=== PATIENT | male | born 1960 | race Caucasian/White ===

== ENCOUNTER 2018-11-04 07:43 | Day surgery (SDC) | payer BC ==
[~2018-11-04 07:43] MED LIST: Midazolam 1 MG/ML 2 ML SDV ONE; Propofol 200 MG/20 ML SDV ONE; fentaNYL 100 MCG/2 ML SDV ONE
[2018-11-04] MEDS ORDERED: Lactated Ringers 1,000 ML IV SCH (08:30)
--- NOTE | 2018-11-05 09:40 | OR ---
DATE OF PROCEDURE: 11/04/2018 PREOPERATIVE DIAGNOSIS: Colon cancer screening. POSTOPERATIVE DIAGNOSIS: Small colon polyps. PROCEDURE: Colonoscopy to the cecum with biopsy resection of two small colon polyps 20 cm from the anal verge sent as one specimen and biopsy resection of a small rectal polyp. ANESTHESIA: IV anesthesia with monitored anesthesia care. SURGEON: Dillon Ramirez MD INDICATION: This 58-year-old white male is referred for a colonoscopy for colon cancer screening. He has never had a colonoscopic exam. I counseled him for the procedure including risks and alternatives, and he gave his informed consent to proceed. DESCRIPTION OF PROCEDURE: The patient was placed in the left lateral decubitus position. IV anesthesia was administered by the Anesthesia Service. Time-out was held. A rectal exam was performed, which was unremarkable. The flexible video Olympus colonoscope was introduced through his anus, up his rectum, and out his colon all the way to the cecum. Once the cecum was reached, the scope was slowly withdrawn examining the mucosa throughout. No mucosal abnormalities were noted until we reached 20 cm from anal verge. Here, we saw two small polyps which were adjacent to each other. These were removed with the biopsy forceps and sent to the laboratory as one specimen. The scope was brought back into the rectum, where another small polyp was seen. This was removed and sent to the laboratory separate from the other two. The scope was retroflexed in the rectum with the distal rectum appearing unremarkable. The scope was straightened and removed. He tolerated the procedure well. Dillon Ramirez MD /[id number] [email or web address]
== END 2018-11-04 12:57 | disposition home or self-care (01) ==
LOC: JP.SDS 07:43
PROVIDERS: ATTEND Surgery
DX: Z12.11 Encounter for screening for malignant neoplasm of colon (principal); K63.5 Polyp of colon; K62.1 Rectal polyp; F17.200 Nicotine dependence, unspecified, uncomplicated; R73.03 Prediabetes; M06.9 Rheumatoid arthritis, unspecified
CPT/HCPCS: 45380; 88305; J2250; J2704; J3010; J7120

== ENCOUNTER 2020-10-22 23:19 | Emergency (ER) | payer SELFPAY ==
[2020-10-22] MEDS ORDERED: Ketorolac 30 MG/ML SDV IM ONE (23:50)
[2020-10-22] MEDS ORDERED: Methocarbamol 500 MG Tab PO ONE (23:50)
--- NOTE | 2020-10-22 23:57 | EDM.PDOC ---
ED HPI GENERAL MEDICAL PROBLEM - General Chief Complaint: General Stated Complaint: WEAKNESS, COLLAPSE Time Seen by Provider: 10/22/20 23:35 Source of Information: Reports: Patient History Limitations: Reports: No Limitations - History of Present Illness INITIAL COMMENTS - FREE TEXT/NARRATIVE: Alberto is a 60-year-old male presenting to the ED with acute onset of low back pain. The patient reports the pain started 2 days ago. He has a history significant for rheumatoid arthritis for which she is taking leflunomide. He has been instructed not to take any [id number] NSAIDs because of gastric upset and renal disease. Patient was recently seen by his coat joiner on 09/23/2020. He had been doing well until 2 days ago when he was working on his car and Van. He spent a considerable amount of time bent over cleaning these. He denies any trauma. He has had no loss of bowel or bladder control. He denies any weakness in the lower extremities. He denies any saddle anesthesia. He states in the last 2 days he has had several episodes where he has had to catch himself from falling due to the acute exacerbation of pain. He states that when the pain kicks in he does not feel that he can move. In addition to the leflunomide, the patient also takes folic acid and lisinopril. Lower Back Pain Score (Numeric/FACES): 10 - Related Data Allergies Allergy/AdvReac Type Severity Reaction Status Date / Time No Known Allergies Allergy Verified 10/22/20 23:33 Home Meds: Home Meds Folic Acid 1 mg PO DAILY 10/31/18 [History] Leflunomide [Arava] 20 mg PO DAILY 10/31/18 [History] lisinopriL [Lisinopril] 20 mg PO DAILY 10/22/20 [History] methocarbamoL [Methocarbamol] 750 mg PO QID PRN #28 tablet 10/23/20 [Rx] Past Medical History HEENT History: Reports: Impaired Vision, Other (See Below) Other HEENT History: tinnitis Cardiovascular History: Reports: Hypertension Respiratory History: Reports: None Gastrointestinal History: Reports: Colon Polyp Musculoskeletal History: Reports: RA Endocrine/Metabolic History: Reports: Diabetes, Type II Immunologic History: Reports: Other (See Below) Other Immunologic History: rhumatoid arthritis - Infectious Disease History Infectious Disease History: Reports: Chicken Pox - Past Surgical History HEENT Surgical History: Reports: None Cardiovascular Surgical History: Reports: None GI Surgical History: Reports: Colonoscopy, Polypectomy Dermatological Surgical History: Reports: None Social & Family History - Tobacco Use Tobacco Use Status *Q: Current Every Day Tobacco User Years of Tobacco use: 30 Packs/Tins Daily: 1.5 - Caffeine Use Caffeine Use: Reports: Coffee, Soda - Alcohol Use Number of Drinks Per Day: 3 - Recreational Drug Use Recreational Drug Use: No ED ROS GENERAL - Review of Systems Review Of Systems: See Below Constitutional: Reports: No Symptoms HEENT: Reports: No Symptoms Respiratory: Reports: No Symptoms Cardiovascular: Reports: No Symptoms Endocrine: Reports: No Symptoms GI/Abdominal: Reports: No Symptoms : Reports: No Symptoms Musculoskeletal: Reports: Back Pain (Acute onset of low back pain causing the patient to elapse.) Skin: Reports: No Symptoms Neurological: Reports: No Symptoms Psychiatric: Reports: No Symptoms Hematologic/Lymphatic: Reports: No Symptoms Immunologic: Reports: Other (History of rheumatoid arthritis on immunosuppressive therapy.) ED EXAM, GENERAL - Physical Exam Exam: See Below Exam Limited By: No Limitations General Appearance: Alert, Anxious, Mild Distress Head: Atraumatic, Normocephalic Neck: Normal Inspection, Supple Respiratory/Chest: No Respiratory Distress, Lungs Clear, Normal Breath Sounds Cardiovascular: Normal Peripheral Pulses, Regular Rate, Rhythm, No Murmur Peripheral Pulses: 2+: Radial (L), Radial (R) GI/Abdominal: Normal Bowel Sounds, Soft, Non-Tender Back Exam: Decreased Range of Motion (Difficulty with flexion of the lumbar), Muscle Spasm (Significant right paraspinal muscle spasm), Paraspinal Tenderness (Severe right paraspinal tenderness). No: Vertebral Tenderness Extremities: Normal Inspection, Normal Range of Motion Neurological: Alert, Oriented, Normal Cognition, No Motor/Sensory Deficits Psychiatric: Normal Affect, Normal Mood Skin Exam: Warm, Dry, Intact, Normal Color, No Rash Lymphatic: No Adenopathy Course - Vital Signs Last Recorded V/S: Last Vital Signs Temp 36.8 C 10/22/20 23:35 Pulse 71 10/23/20 01:02 Resp 19 10/23/20 01:02 BP 192/121 H 10/23/20 01:02 Pulse Ox 96 10/23/20 01:02 - Orders/Labs/Meds Orders: Active Orders 24 hr Category Date Time Status Lumbar Spine 2 or 3V [CR] Stat Exams 10/22/20 23:50 Taken methocarbamoL [Robaxin] Med 10/23/20 01:29 Once 1,000 mg PO ONETIME ONE Labs: Laboratory Tests 10/22/20 10/22/20 Range/Units 00:01 00:01 WBC 15.7 H (4.5-11.0) K/uL RBC 4.36 (4.30-5.90) M/uL Hgb 13.9 (12.0-15.0) g/dL Hct 41.3 (40.0-54.0) % MCV 95 (80-98) fL MCH 32 H (27-31) pg MCHC 34 (32-36) % Plt Count 298 (150-400) K/uL ESR 29 H (0-20) mm/hr Sodium 141 (140-148) mmol/L Potassium 4.4 (3.6-5.2) mmol/L Chloride 104 (100-108) mmol/L Carbon Dioxide 26 (21-32) mmol/L Anion Gap 11.3 (5.0-14.0) mmol/L BUN 18 (7-18) mg/dL Creatinine 1.4 H (0.8-1.3) mg/dL Est Cr Clr Drug Dosing 61.26 mL/min Estimated GFR (MDRD) 52 L (>60) Glucose 116 H (74-106) mg/dL Calcium 8.7 (8.5-10.1) mg/dL C-Reactive Protein 1.40 H (0.0-0.3) mg/dL Meds: Medications Discontinued Medications Generic Name Dose Route Start Last Admin Trade Name Freq PRN Reason Stop Dose Admin Ketorolac Tromethamine 30 mg 10/22/20 23:50 10/22/20 23:59 Ketorolac 30 Mg/Ml Sdv IM 10/22/20 23:51 30 mg ONETIME ONE Administration Lidocaine 700 mg 10/23/20 00:55 10/23/20 00:59 Lidocaine 5% 700 Mg Patch TOP 10/23/20 00:56 700 mg ONETIME ONE Administration Methocarbamol 1,000 mg 10/22/20 23:50 10/22/20 23:59 Methocarbamol 500 Mg Tab PO 10/22/20 23:51 1,000 mg ONETIME ONE Administration - Radiology Interpretation Free Text/Narrative:: I reviewed the three-view x-ray of the lumbar spine. There is significant straightening of the lumbar spine secondary to muscle spasm. There is normal disc height. Vertebral bodies appear to be normal without evidence for acute compression fracture. No significant spondylolisthesis. Surprisingly, no significant arthritis despite the patient having relatively active rheumatoid arthritis. - Re-Assessments/Exams Free Text/Narrative Re-Assessment/Exam: 10/22/20 23:56 Alberto is having significant right paraspinal lumbar spasm and pain. There is no midline tenderness to palpation or percussion. We will get a lumbar x-ray, however, I do not anticipate that we will see an acute fracture. Moreover, this appears to be an acute myofascial lumbar strain affecting the right side greater than the left. We will attempt to treat this with a shot of Toradol 30 mg IM and methocarbamol 1 g p.o. I will check the patient's labs for a CBC, basic metabolic profile to look at his creatinine, a C-reactive protein and erythrocyte sedimentation rate to look at inflammatory markers. 10/23/20 00:24 I reviewed the 3 view x-rays of the lumbar spine shows straightening of the spine without evidence of an osseous abnormality. Disc heights are preserved. No compression fractures. No significant arthritic changes noted. 10/23/20 00:25 my plan is to treat the patient's muscle spasm with methocarbamol 750 mg 4 times a day as needed for spasm. He will have to take Tylenol for p ain control as he is intolerant to NSAIDs due to his kidney function and recurrent gastritis. I do not think that opiates are appropriate in this situation. Moreover, the methocarbamol will probably provide adequate pain relief as majority of the pain is coming from muscle spasm. Patient is instructed to ice the area 15 to 20 minutes every couple hours he is awake over the next several days after which time he can alternate heat and ice. No prolonged bending or standing. No lifting greater than 20 pounds. A work note with these limitations was given to the patient. These limitations are in effect for 7 days. Departure - Departure Time of Disposition: 01:30 Disposition: Home, Self-Care 01 Clinical Impression: Acute lumbar myofascial strain Qualifiers: Encounter type: initial encounter Qualified Code(s): S39.012A - Strain of muscle, fascia and tendon of lower back, initial encounter - Discharge Information Prescriptions: methocarbamoL [Methocarbamol] 750 mg PO QID PRN #28 tablet PRN Reason: Muscle Spasm - Painful Instructions: Lumbosacral Strain Referrals: Tj Cowan, LEATHER BELT [facility]KER [Primary Care Provider] - Forms: ED Department Discharge Care Plan Goals: I am prescribing you methocarbamol 750 mg 4 times a day as needed for muscle spasm and pain. Please take Tylenol in addition for pain as needed. I would like you to ice the back 15 to 20 minutes every couple hours you are awake for the next 24 hours after which you can alternate with heat and ice. I am putting you on work restrictions for the next 7 days. A note has been included with these restrictions until 10/31/2020. Please return to the ED for reevaluation should you develop any difficulty with urination or defecation, new onset of numbness or tingling. I would also recommend picking up Salonpas 4% lidocaine patches and applying it to the back for pain control. Sepsis Event Note (ED) - Evaluation Sepsis Screening Result: No Definite Risk - Focused Exam Vital Signs: Vital Signs Temp Pulse Resp BP Pulse Ox 10/23/20 01:02 71 19 192/121 H 96 10/23/20 00:17 151/102 H 10/22/20 23:35 36.8 C 73 19 172/102 H 98 10/22/20 23:34 36.8 C 73 19 172/102 H 98 - Problem List & Annotations (1) Acute lumbar myofascial strain SNOMED Code(s): 718347309, 02951162, 025742382 Code(s): S39.012A - STRAIN OF MUSCLE, FASCIA AND TENDON OF LOWER BACK, INIT Status: Acute Priority: Medium Current Visit: Yes Qualifiers: Encounter type: initial encounter Qualified Code(s): S39.012A - Strain of muscle, fascia and tendon of lower back, initial encounter - Problem List Review Problem List Initiated/Reviewed/Updated: Yes - My Orders Last 24 Hours: My Active Orders 10/22/20 23:50 Lumbar Spine 2 or 3V [CR] Stat 10/23/20 01:29 methocarbamoL [Robaxin] 1,000 mg PO ONETIME ONE - Assessment/Plan Last 24 Hours: My Active Orders 10/22/20 23:50 Lumbar Spine 2 or 3V [CR] Stat 10/23/20 01:29 methocarbamoL [Robaxin] 1,000 mg PO ONETIME ONE
[2020-10-23] MEDS ORDERED: Lidocaine 5% 700 MG Patch TOP ONE (00:55)
[2020-10-23] MEDS ORDERED: Methocarbamol 500 MG Tab PO ONE (01:29)
--- NOTE | 2020-10-25 09:39 | CR ---
Lumbar Spine 2 or 3V CLINICAL HISTORY: Back pain FINDINGS: The vertebral body heights are maintained. There is moderate disc space narrowing at L5-S1. There is a minimal retrolisthesis of L5 on S1. There is some osteophytic change in the facets. IMPRESSION: Degenerative disc changes and osteoarthritis at L5-S1 No fracture seen
== END 2020-10-23 01:54 | disposition home or self-care (01) ==
LOC: JP.ED 23:19
DX: S39.012A Strain of muscle, fascia and tendon of lower back, initial encounter (principal); I10 Essential (primary) hypertension; E11.9 Type 2 diabetes mellitus without complications; Z79.899 Other long term (current) drug therapy; Z72.0 Tobacco use; X50.9XXA Other and unspecified overexertion or strenuous movements or postures, initial encounter; Y92.009 Unspecified place in unspecified non-institutional (private) residence as the place of occurrence of the external cause
CPT/HCPCS: 36415; 72100; 80048; 85027; 85651; 86140; 96372; 99283; A9270; J1885

== ENCOUNTER 2021-08-26 19:03 | Emergency (ER) | payer OTHER ==
[2021-08-26] MEDS ORDERED: HYDROmorphone 1 MG/ML Syringe IM ONE ×2 (19:30→21:49)
[2021-08-26] MEDS ORDERED: predniSONE 20 MG Tab PO ONE (21:10)
[2021-08-26] MEDS ORDERED: Sodium Chloride 0.9% 10 ML Syringe FLUSH PRN (22:20)
[2021-08-26] MEDS ORDERED: Dexamethasone 4 MG/ML SDV IVPUSH ONE (22:20)
[2021-08-26] MEDS ORDERED: Morphine 10 MG/ML Syringe IVPUSH STA (23:58)
== END 2021-08-27 06:43 | disposition home or self-care (01) ==
LOC: JP.ED 19:03
DX: M06.9 Rheumatoid arthritis, unspecified (principal); I10 Essential (primary) hypertension; E11.9 Type 2 diabetes mellitus without complications; F17.210 Nicotine dependence, cigarettes, uncomplicated; Z79.899 Other long term (current) drug therapy
CPT/HCPCS: 36415; 80053; 85025; 85651; 86140; 86431; 96372; 96374; 96375; 99283; 99283-25; J1100; J1170; J2270; J3490; J7512

== ENCOUNTER 2021-12-05 21:22 | Emergency (ER) | payer OTHER ==
[2021-12-05] MEDS ORDERED: Lidocaine 5% 700 MG Patch TRDERM ONE (22:18)
== END 2021-12-05 22:34 | disposition home or self-care (01) ==
LOC: JP.ED 21:22
DX: S39.012A Strain of muscle, fascia and tendon of lower back, initial encounter (principal); I10 Essential (primary) hypertension; E11.9 Type 2 diabetes mellitus without complications; F17.210 Nicotine dependence, cigarettes, uncomplicated; Z79.899 Other long term (current) drug therapy
CPT/HCPCS: 99283; A9270

== ENCOUNTER 2022-03-14 20:38 | Emergency (ER) | payer OTHER | END 2022-03-14 21:58 | disposition home or self-care (01) | LOC: JP.ED 20:38 | DX: M06.9 Rheumatoid arthritis, unspecified (principal); I10 Essential (primary) hypertension; E11.9 Type 2 diabetes mellitus without complications; F17.210 Nicotine dependence, cigarettes, uncomplicated; Z79.899 Other long term (current) drug therapy | CPT/HCPCS: 99283 ==

== ENCOUNTER 2022-07-12 20:47 | Emergency (ER) | payer OTHER ==
[2022-07-12] MEDS ORDERED: Sodium Chloride 0.9% 10 ML Syringe FLUSH PRN (20:56)
[2022-07-12] MEDS ORDERED: Dexamethasone 4 MG/ML SDV IVPUSH ONE (20:56)
[2022-07-12] MEDS ORDERED: HYDROmorphone 1 MG/ML Syringe IVPUSH ONE (20:56)
== END 2022-07-12 22:26 | disposition home or self-care (01) ==
LOC: JP.ED 20:47
DX: M06.9 Rheumatoid arthritis, unspecified (principal); I10 Essential (primary) hypertension; E11.9 Type 2 diabetes mellitus without complications; Z79.899 Other long term (current) drug therapy
CPT/HCPCS: 36415; 85025; 86140; 96374; 96375; 99283; J1100; J1170; J3490

== ENCOUNTER 2022-07-12 23:05 | Emergency (ER) | payer OTHER ==
[2022-07-12] MEDS ORDERED: Heparin Sodium 5,000 Units/ML Vial IVPUSH ONE (23:19)
[2022-07-12] MEDS ORDERED: Aspirin 81 MG Tab.Chew PO ONE (23:19)
[2022-07-12] MEDS ORDERED: Metoprolol Tartrate 25 MG Tab PO STA (23:27)
[2022-07-12] MEDS ORDERED: Heparin Sodium/D5W 500 ML ONE (23:27)
[2022-07-12] MEDS ORDERED: Metoprolol Tartrate 25 MG Tab ONE (23:28)
[2022-07-12] MEDS ORDERED: Heparin Sodium/D5W 25,000 UNITS/500 ML BAG IV SCH (23:30)
[2022-07-12 23:43] LABS: ESTIMATED GFR 69 mL/min (>60)
[2022-07-12 23:44] LABS: TROPONIN I HIGH SENSITIVITY 1511.5 pg/mL (<=60.3)
== END 2022-07-13 00:31 ==
LOC: JP.ED 23:05
DX: I21.11 ST elevation (STEMI) myocardial infarction involving right coronary artery (principal); I10 Essential (primary) hypertension; E11.9 Type 2 diabetes mellitus without complications; M06.9 Rheumatoid arthritis, unspecified; Z79.899 Other long term (current) drug therapy
CPT/HCPCS: 36415; 80053; 84484; 85610; 85730; 87635; 93005; 93010; 96365; 96376; 99285; 99291; A9270; J1644; U0002

== ENCOUNTER 2022-08-29 16:42 | Emergency (ER) | payer OTHER ==
[2022-08-29] MEDS ORDERED: Bupivacaine 0.5%/EPINEPHrine 1:200,000 1.8 ML Cartridge INJECT ONE (17:11)
[2022-08-29] MEDS ORDERED: Tranexamic Acid 1,000 MG/10 ML Vial TOP ONE (17:11)
[2022-08-29 17:22] LABS: BASOPHILS ABSOLUTE AUTO 0.12 K/uL (0.00-0.10); BASOPHILS PERCENT AUTO 0.6 % (0.1-1.3); EOSINOPHILS ABSOLUTE AUTO 0.06 K/uL (0.00-0.40); EOSINOPHILS PERCENT AUTO 0.3 % (0.0-5.4); HEMATOCRIT 32.6 % (38.4-49.7); HEMOGLOBIN 10.9 g/dL (12.9-16.9); IMMATURE GRAN ABSOLUTE AUTO 0.15 K/uL (0.00-0.23); IMMATURE GRAN PERCENT AUTO 0.7 % (0.0-0.7); LYMPHOCYTES ABSOLUTE AUTO 1.17 K/uL (0.8-3.3); LYMPHOCYTES PERCENT AUTO 5.8 % (11.4-47.7); MEAN CORPUSCULAR HEMOGLOBIN 32.2 pg (31.6-35.5); MEAN CORPUSCULAR HGB CONC 33.4 g/dL (31.6-35.5); MEAN CORPUSCULAR VOLUME 96.2 fL (81.4-99.0); MONOCYTES ABSOLUTE AUTO 1.72 K/uL (0.20-0.90); MONOCYTES PERCENT AUTO 8.5 % (3.3-12.6); NEUTROPHILS ABSOLUTE AUTO 16.93 K/uL (1.0-7.6); NEUTROPHILS PERCENT AUTO 84.1 % (40.0-78.1); PLATELET COUNT,PLT 275 K/uL (130-375); RED BLOOD CELL COUNT 3.39 M/uL (4.14-5.76); WHITE BLOOD CELL COUNT,WBC 20.2 K/uL (3.2-11.0)
== END 2022-08-29 20:34 | disposition home or self-care (01) ==
LOC: JP.ED 16:42
DX: K91.840 Postprocedural hemorrhage of a digestive system organ or structure following a digestive system procedure (principal); E11.9 Type 2 diabetes mellitus without complications; I10 Essential (primary) hypertension; F17.210 Nicotine dependence, cigarettes, uncomplicated
CPT/HCPCS: 36415; 84484; 85025; 99284; J3490

== ENCOUNTER 2023-03-25 19:26 | Emergency (ER) | payer OTHER ==
[2023-03-25] MEDS ORDERED: Acetaminophen 325 MG Tab PO ONE (20:08)
[2023-03-25] MEDS ORDERED: Albuterol/Ipratropium 3.0-0.5 MG/3 ML Neb Soln NEB ONE (20:25)
[2023-03-25 20:37] LABS: BASOPHILS ABSOLUTE AUTO 0.05 K/uL (0.00-0.10); BASOPHILS PERCENT AUTO 0.4 % (0.1-1.3); EOSINOPHILS ABSOLUTE AUTO 0.05 K/uL (0.00-0.40); EOSINOPHILS PERCENT AUTO 0.4 % (0.0-5.4); HEMATOCRIT 36.1 % (38.4-49.7); HEMOGLOBIN 12.1 g/dL (12.9-16.9); IMMATURE GRAN ABSOLUTE AUTO 0.04 K/uL (0.00-0.23); IMMATURE GRAN PERCENT AUTO 0.3 % (0.0-0.7); LYMPHOCYTES ABSOLUTE AUTO 0.71 K/uL (0.8-3.3); LYMPHOCYTES PERCENT AUTO 5.5 % (11.4-47.7); MEAN CORPUSCULAR HEMOGLOBIN 31.8 pg (31.6-35.5); MEAN CORPUSCULAR HGB CONC 33.5 g/dL (31.6-35.5); MEAN CORPUSCULAR VOLUME 94.8 fL (81.4-99.0); MONOCYTES ABSOLUTE AUTO 1.21 K/uL (0.20-0.90); MONOCYTES PERCENT AUTO 9.3 % (3.3-12.6); NEUTROPHILS ABSOLUTE AUTO 10.92 K/uL (1.0-7.6); NEUTROPHILS PERCENT AUTO 84.1 % (40.0-78.1); PLATELET COUNT,PLT 194 K/uL (130-375); RED BLOOD CELL COUNT 3.81 M/uL (4.14-5.76)
[2023-03-25 20:44] LABS: CORONAVIRUS COVID-19 NAA NEGATIVE (NEGATIVE); INFLUENZA A NAA NEGATIVE (NEGATIVE); INFLUENZA B NAA NEGATIVE (NEGATIVE); RESPIRATORY SYNCYTIAL VIR NAA NEGATIVE (NEGATIVE)
[2023-03-25 21:00] LABS: A/G RATIO 0.9 (1.2-2.2); ALANINE AMINOTRANSFERASE,ALT 17 U/L (12-78); ALBUMIN 3.3 g/dL (3.4-5.0); ALKALINE PHOSPHATASE 81 U/L (46-116); ASPARTATE AMNIOTRANSFERASE,AST 17 U/L (15-37); BILIRUBIN TOTAL 0.6 mg/dL (0.2-1.0); BLOOD UREA NITROGEN,BUN 19 mg/dL (7-18); C-REACTIVE PROTEIN 6.83 mg/dL (<0.50); CALCIUM 7.9 mg/dL (8.5-10.1); CARBON DIOXIDE,CO2 26 mmol/L (21-32); CHLORIDE,CL 100 mmol/L (100-108); CREATININE 1.6 mg/dL (0.8-1.3); EST CRCL DRUG DOSING (CG) 52.29 mL/min; ESTIMATED GFR 49 mL/min (>60); GLUCOSE RANDOM 128 mg/dL (74-106); POTASSIUM,K 4.1 mmol/L (3.6-5.2); PROTEIN TOTAL,TP 6.9 g/dL (6.4-8.2); SODIUM,NA 135 mmol/L (140-148)
[2023-03-25 21:05] LABS: LACTIC ACID 1.1 mmol/L (0.4-2.0)
[2023-03-25 21:07] LABS: ANION GAP 13.1 mmol/L (5.0-14.0)
== END 2023-03-25 21:47 | disposition home or self-care (01) ==
LOC: JP.ED 19:26
DX: J18.9 Pneumonia, unspecified organism (principal); I10 Essential (primary) hypertension; E11.9 Type 2 diabetes mellitus without complications; F17.210 Nicotine dependence, cigarettes, uncomplicated; Z20.822 Contact with and (suspected) exposure to COVID-19; Z79.82 Long term (current) use of aspirin; Z79.899 Other long term (current) drug therapy
CPT/HCPCS: 0241U; 36415; 71045; 80053; 83605; 84145; 84484; 85025; 85379; 86140; 93005; 94640; 99285; A9270; J7620

== ENCOUNTER 2023-07-12 20:36 | Inpatient (IN) | payer OTHER ==
[2023-07-12 21:11] LABS: BASOPHILS ABSOLUTE AUTO 0.11 K/uL (0.00-0.10); BASOPHILS PERCENT AUTO 0.9 % (0.1-1.3); EOSINOPHILS ABSOLUTE AUTO 0.24 K/uL (0.00-0.40); EOSINOPHILS PERCENT AUTO 1.9 % (0.0-5.4); HEMATOCRIT 45.9 % (38.4-49.7); HEMOGLOBIN 15.4 g/dL (12.9-16.9); IMMATURE GRAN ABSOLUTE AUTO 0.05 K/uL (0.00-0.23); IMMATURE GRAN PERCENT AUTO 0.4 % (0.0-0.7); LYMPHOCYTES PERCENT AUTO 8.6 % (11.4-47.7); MEAN CORPUSCULAR HEMOGLOBIN 31.7 pg (31.6-35.5); MEAN CORPUSCULAR HGB CONC 33.6 g/dL (31.6-35.5); MEAN CORPUSCULAR VOLUME 94.4 fL (81.4-99.0); MONOCYTES ABSOLUTE AUTO 1.69 K/uL (0.20-0.90); MONOCYTES PERCENT AUTO 13.2 % (3.3-12.6); NEUTROPHILS ABSOLUTE AUTO 9.66 K/uL (1.0-7.6); PLATELET COUNT,PLT 262 K/uL (130-375); RED BLOOD CELL COUNT 4.86 M/uL (4.14-5.76); WHITE BLOOD CELL COUNT,WBC 12.9 K/uL (3.2-11.0)
[2023-07-12 21:22] LABS: CALCIUM 9.5 mg/dL (8.5-10.1); CREATININE 2.6 mg/dL (0.8-1.3); EST CRCL DRUG DOSING (CG) 31.78 mL/min; POTASSIUM,K 4.2 mmol/L (3.6-5.2); TROPONIN I HIGH SENSITIVITY 15.9 pg/mL (<=60.3)
[2023-07-12 21:23] LABS: ANION GAP 16.2 mmol/L (5.0-14.0)
[2023-07-12] MEDS: Sodium Chloride 0.9% 1,000 ML IV SCH ×2 (21:30→22:54)
[2023-07-12 22:10] LABS: A/G RATIO 1.2 (1.2-2.2); ALBUMIN 4.3 g/dL (3.4-5.0); BILIRUBIN DIRECT 0.17 mg/dL (0.0-0.2); BILIRUBIN INDIRECT 0.53; BILIRUBIN TOTAL 0.7 mg/dL (0.2-1.0); PROTEIN TOTAL,TP 7.9 g/dL (6.4-8.2)
[2023-07-12] MEDS: Sodium Chloride 0.9% 100 ML IV ONE (23:16)
[2023-07-12] MEDS: Iopamidol 612 MG/ML 100 ML Bottle IV ONE (23:16)
[2023-07-12] MEDS: Sodium Chloride 0.9% 10 ML Syringe FLUSH ONE (23:16)
[2023-07-12] MEDS ORDERED: Naloxone 0.4 MG/ML SDV IVPUSH PRN (23:26)
[2023-07-13] MEDS: Sodium Chloride 0.9% 1,000 ML IV SCH ×2 (00:03→07:56)
[2023-07-13 00:14] LABS: APPEARANCE,URINE CLEAR (CLEAR); BILIRUBIN,URINE NEGATIVE (NEGATIVE); COLOR,URINE YELLOW (YELLOW); GLUCOSE,URINE NEGATIVE (NEGATIVE); KETONES,URINE NEGATIVE (NEGATIVE); LEUKOCYTE ESTERASE,URINE NEGATIVE (NEGATIVE); NITRITE,URINE NEGATIVE (NEGATIVE); OCCULT BLOOD,URINE NEGATIVE (NEGATIVE); PH,URINE 5.5 (5.0-8.0); PROTEIN,URINE NEGATIVE (NEGATIVE); UROBILINOGEN,URINE 0.2 EU/dL (0.2-1.0)
[2023-07-13 00:16] LABS: AMORPHOUS SEDIMENT,URINE FEW; BACTERIA,URINE FEW; EPITHELIAL CELLS,URINE RARE; MUCUS,URINE NOT SEEN; RBC,URINE 0-5 (0-5); WBC,URINE 0-5 (0-5)
[2023-07-13 01:22] LABS: CORONAVIRUS COVID-19 NAA NEGATIVE (NEGATIVE); INFLUENZA A NAA NEGATIVE (NEGATIVE); INFLUENZA B NAA NEGATIVE (NEGATIVE); RESPIRATORY SYNCYTIAL VIR NAA NEGATIVE (NEGATIVE)
[2023-07-13] MEDS ORDERED: Ondansetron 4 MG/2 ML SDV IV PRN (02:24)
[2023-07-13] MEDS ORDERED: Ondansetron 4 MG Tab.DIS PO PRN (02:24)
[2023-07-13] MEDS ORDERED: Melatonin 3 MG Tab PO PRN (02:24)
[2023-07-13] MEDS: Nicotine 21 MG/24 Hr Patch TRDERM PRN (02:49)
[2023-07-13] MEDS: Pantoprazole 40 MG Vial IV SCH ×2 (02:49→20:34)
[2023-07-13] MEDS: HYDROmorphone 0.5 MG/0.5 ML Syringe IVPUSH ONE (03:01)
[2023-07-13 04:33] LABS: HEMATOCRIT 40.8 % (38.4-49.7); HEMOGLOBIN 13.6 g/dL (12.9-16.9); MEAN CORPUSCULAR HEMOGLOBIN 31.6 pg (31.6-35.5); MEAN CORPUSCULAR HGB CONC 33.3 g/dL (31.6-35.5); MEAN CORPUSCULAR VOLUME 94.9 fL (81.4-99.0); RED BLOOD CELL COUNT 4.3 M/uL (4.14-5.76); WHITE BLOOD CELL COUNT,WBC 9.3 K/uL (3.2-11.0)
[2023-07-13 04:43] LABS: CALCIUM 8.2 mg/dL (8.5-10.1); CREATININE 1.9 mg/dL (0.8-1.3); EST CRCL DRUG DOSING (CG) 43.48 mL/min
[2023-07-13] MEDS: NICOTINE PATCH CHECK TOP SCH (09:42)
[2023-07-14] MEDS ORDERED: LEFLUNOMIDE 20 MG PO SCH (05:15)
[2023-07-14] MEDS: Clopidogrel 75 MG Tab PO SCH (05:43)
[2023-07-14] MEDS: predniSONE 5 MG Tab PO ONE (05:43)
[2023-07-14] MEDS: Metoprolol Succinate 25 MG Tab.ER PO SCH (05:44)
[2023-07-14] MEDS: Acetaminophen 325 MG Tab PO PRN (06:21)
[2023-07-14] MEDS: Lisinopril 20 MG Tab PO SCH (08:35)
[2023-07-14] MEDS: atorvaSTATin 20 MG Tab PO SCH (08:35)
[2023-07-14] MEDS: Aspirin 81 MG Tab.EC PO SCH (08:35)
[2023-07-14] MEDS: LEFLUNOMIDE 20 MG PO SCH (10:10)
[2023-07-14] MEDS: Lidocaine 4% 1 each Patch TOP SCH (11:10)
[2023-07-14] MEDS ORDERED: Clopidogrel 75 MG Tab PO SCH (21:00)
[2023-07-14] MEDS ORDERED: Metoprolol Succinate 25 MG Tab.ER PO SCH (21:00)
[2023-07-15] MEDS ORDERED: Metoprolol Succinate 25 MG Tab.ER PO SCH (09:00)
== END 2023-07-14 11:48 | disposition home or self-care (01) | DRG 389 ==
LOC: JP.ED 20:36 → JP.MS 07-13 01:43
PROVIDERS: ADMIT Registered Nurse; ATTEND Internal Medicine
DX: K56.600 Partial intestinal obstruction, unspecified as to cause (principal); N17.9 Acute kidney failure, unspecified; A08.4 Viral intestinal infection, unspecified; I25.10 Atherosclerotic heart disease of native coronary artery without angina pectoris; F17.210 Nicotine dependence, cigarettes, uncomplicated; H54.7 Unspecified visual loss; R62.50 Unspecified lack of expected normal physiological development in childhood; E86.0 Dehydration; E11.22 Type 2 diabetes mellitus with diabetic chronic kidney disease; I12.9 Hypertensive chronic kidney disease with stage 1 through stage 4 chronic kidney disease, or unspecified chronic kidney disease; N18.31 Chronic kidney disease, stage 3a; M54.50 Low back pain, unspecified; M05.79 Rheumatoid arthritis with rheumatoid factor of multiple sites without organ or systems involvement; I25.2 Old myocardial infarction; Z95.5 Presence of coronary angioplasty implant and graft; Z79.899 Other long term (current) drug therapy; Z79.02 Long term (current) use of antithrombotics/antiplatelets; Z79.82 Long term (current) use of aspirin; Z86.010 Personal history of colon polyps; Z98.890 Other specified postprocedural states
CPT/HCPCS: 0241U; 36415; 71275; 74174; 80048; 80076; 81001; 84484; 85025; 85027; 85379; 86140; 87493; 93005; 93010; 96360; 96361; 99223; 99232; 99238; 99285; 99285-25; A9270-GY; C9113; J3490; J7030; J7512; Q9967

== ENCOUNTER 2024-09-16 22:13 | Inpatient (IN) | payer OTHER ==
[2024-09-16] MEDS: Albuterol 0.083% 2.5 MG/3 ML Neb Soln NEB ONE (23:09)
[2024-09-16] MEDS: Albuterol/Ipratropium 3.0-0.5 MG/3 ML Neb Soln NEB ONE (23:09)
[2024-09-16 23:10] LABS: BASOPHILS ABSOLUTE AUTO 0.15 K/uL (0.00-0.10); EOSINOPHILS PERCENT AUTO 3.4 % (0.0-5.4); HEMOGLOBIN 13.1 g/dL (12.9-16.9); IMMATURE GRAN ABSOLUTE AUTO 0.06 K/uL (0.00-0.23); IMMATURE GRAN PERCENT AUTO 0.4 % (0.0-0.7); LYMPHOCYTES ABSOLUTE AUTO 1.49 K/uL (0.8-3.3); LYMPHOCYTES PERCENT AUTO 10.2 % (11.4-47.7); MEAN CORPUSCULAR HEMOGLOBIN 32.5 pg (31.6-35.5); MEAN CORPUSCULAR HGB CONC 33.6 g/dL (31.6-35.5); MEAN CORPUSCULAR VOLUME 96.8 fL (81.4-99.0); MONOCYTES ABSOLUTE AUTO 2.09 K/uL (0.20-0.90); MONOCYTES PERCENT AUTO 14.4 % (3.3-12.6); NEUTROPHILS ABSOLUTE AUTO 10.27 K/uL (1.0-7.6); NEUTROPHILS PERCENT AUTO 70.6 % (40.0-78.1); PLATELET COUNT,PLT 241 K/uL (130-375); RED BLOOD CELL COUNT 4.03 M/uL (4.14-5.76); WHITE BLOOD CELL COUNT,WBC 14.6 K/uL (3.2-11.0)
[2024-09-16] MEDS: methylPREDNISolone Sodium Succinate 125 MG/2 ML SDV IVPUSH ONE (23:12)
[2024-09-16] MEDS: Aspirin 81 MG Tab.Chew PO ONE (23:12)
[2024-09-16 23:29] LABS: A/G RATIO 1.1 (1.2-2.2); ALANINE AMINOTRANSFERASE,ALT 25 U/L (12-78); ALBUMIN 3.6 g/dL (3.4-5.0); ALKALINE PHOSPHATASE 82 U/L (46-116); ASPARTATE AMNIOTRANSFERASE,AST 15 U/L (15-37); BILIRUBIN TOTAL 0.7 mg/dL (0.2-1.0); BLOOD UREA NITROGEN,BUN 23 mg/dL (7-18); CALCIUM 8.9 mg/dL (8.5-10.1); CARBON DIOXIDE,CO2 25 mmol/L (21-32); CHLORIDE,CL 103 mmol/L (100-108); CREATININE 1.5 mg/dL (0.8-1.3); EST CRCL DRUG DOSING (CG) 54.38 mL/min; ESTIMATED GFR 52 mL/min (>60); GLUCOSE RANDOM 109 mg/dL (74-106); POTASSIUM,K 4.1 mmol/L (3.6-5.2); SODIUM,NA 138 mmol/L (140-148); TROPONIN I HIGH SENSITIVITY 19.3 pg/mL (<=60.3)
[2024-09-16 23:38] LABS: ANION GAP 14.1 mmol/L (5.0-14.0)
[2024-09-17] MEDS: Azithromycin 500 MG in Sodium Chloride 0.9% 250 ML IV SCH (01:09)
[2024-09-17] MEDS: cefTRIAXone 1 GM in Sodium Chloride 0.9% 50 ML IV ONE (02:14)
[2024-09-17] MEDS ORDERED: Melatonin 3 MG Tab PO PRN (02:34)
[2024-09-17] MEDS ORDERED: Acetaminophen 325 MG Tab PO PRN (02:34)
[2024-09-17] MEDS ORDERED: Albuterol 0.083% 2.5 MG/3 ML Neb Soln NEB PRN (02:34)
[2024-09-17] MEDS ORDERED: Ondansetron 4 MG/2 ML SDV IV PRN (02:34)
[2024-09-17] MEDS ORDERED: Ondansetron 4 MG Tab.DIS PO PRN (02:34)
[2024-09-17] MEDS ORDERED: Magnesium Hydroxide 400 MG/5 ML Susp 30 ML Cup PO PRN (02:34)
[2024-09-17] MEDS ORDERED: Nicotine 21 MG/24 Hr Patch TRDERM PRN (02:34)
[2024-09-17] MEDS ORDERED: Sennosides/Docusate Sodium 50-8.6 MG Tab PO PRN (02:34)
[2024-09-17] MEDS ORDERED: Cyclobenzaprine 10 MG Tab PO PRN (03:29)
[2024-09-17 05:55] LABS: HEMATOCRIT 38.8 % (38.4-49.7); HEMOGLOBIN 13.1 g/dL (12.9-16.9); MEAN CORPUSCULAR HEMOGLOBIN 32.4 pg (31.6-35.5); MEAN CORPUSCULAR HGB CONC 33.8 g/dL (31.6-35.5); RED BLOOD CELL COUNT 4.04 M/uL (4.14-5.76); WHITE BLOOD CELL COUNT,WBC 11.1 K/uL (3.2-11.0)
[2024-09-17 06:18] LABS: CALCIUM 9.1 mg/dL (8.5-10.1); CREATININE 1.4 mg/dL (0.8-1.3); EST CRCL DRUG DOSING (CG) 58.27 mL/min; POTASSIUM,K 4.2 mmol/L (3.6-5.2)
[2024-09-17 06:40] LABS: ANION GAP 13.2 mmol/L (5.0-14.0)
[2024-09-17] MEDS: Albuterol/Ipratropium 3.0-0.5 MG/3 ML Neb Soln NEB SCH (06:55)
[2024-09-17] MEDS: atorvaSTATin 20 MG Tab PO SCH (08:42)
[2024-09-17] MEDS: Folic Acid 1 MG Tab PO SCH (08:42)
[2024-09-17] MEDS: Aspirin 81 MG Tab.EC PO SCH (08:43)
[2024-09-17] MEDS: Pantoprazole 40 MG Tab.CR PO SCH (08:43)
[2024-09-17] MEDS: Carvedilol 12.5 MG Tab PO SCH (08:43)
[2024-09-17] MEDS: Lactobacillus Rhamnosus GG (Probiotic) Cap PO SCH (08:43)
[2024-09-17] MEDS: NICOTINE PATCH CHECK TOP SCH (08:44)
[2024-09-17] MEDS: Clopidogrel 75 MG Tab PO SCH (08:44)
[2024-09-17] MEDS: Lisinopril 20 MG Tab PO SCH (08:44)
[2024-09-17] MEDS ORDERED: LEFLUNOMIDE 20 MG PO SCH (09:00)
[2024-09-17] MEDS: predniSONE 20 MG Tab PO ONE (10:32)
[2024-09-17] MEDS ORDERED: Azithromycin 250 MG Tab PO SCH (21:00)
[2024-09-17] MEDS ORDERED: atorvaSTATin 20 MG Tab PO SCH (21:00)
[2024-09-17] MEDS ORDERED: cefTRIAXone 1 GM in Sodium Chloride 0.9% 50 ML IV SCH (22:00)
[2024-09-18] MEDS ORDERED: predniSONE 20 MG Tab PO SCH (08:00)
== END 2024-09-17 14:50 | disposition home or self-care (01) | DRG 193 ==
LOC: JP.ED 22:13 → JP.MS 09-17 01:56
PROVIDERS: ADMIT Registered Nurse; ATTEND Internal Medicine
DX: J18.9 Pneumonia, unspecified organism (principal); J96.01 Acute respiratory failure with hypoxia; J44.1 Chronic obstructive pulmonary disease with (acute) exacerbation; J44.0 Chronic obstructive pulmonary disease with (acute) lower respiratory infection; K52.1 Toxic gastroenteritis and colitis; I25.10 Atherosclerotic heart disease of native coronary artery without angina pectoris; F17.210 Nicotine dependence, cigarettes, uncomplicated; H54.7 Unspecified visual loss; E86.0 Dehydration; E11.22 Type 2 diabetes mellitus with diabetic chronic kidney disease; I12.9 Hypertensive chronic kidney disease with stage 1 through stage 4 chronic kidney disease, or unspecified chronic kidney disease; N18.31 Chronic kidney disease, stage 3a; T36.0X5A Adverse effect of penicillins, initial encounter; T36.1X5A Adverse effect of cephalosporins and other beta-lactam antibiotics, initial encounter; M05.79 Rheumatoid arthritis with rheumatoid factor of multiple sites without organ or systems involvement; Z79.899 Other long term (current) drug therapy; Z95.5 Presence of coronary angioplasty implant and graft; Z79.02 Long term (current) use of antithrombotics/antiplatelets; Z79.82 Long term (current) use of aspirin; I25.2 Old myocardial infarction; Z86.0100 Personal history of colon polyps, unspecified; Z98.890 Other specified postprocedural states; Z79.52 Long term (current) use of systemic steroids
CPT/HCPCS: 36415; 71046; 71046-26; 80048; 80053; 83605; 84484; 85025; 85027; 85379; 93005; 93010; 94640; 96365; 96375; 99223; 99238; 99284; 99285-25; A9270-GY; J0456; J0696; J2919; J7050; J7512